=== PATIENT | male | born 1985 | race Caucasian/White ===

== ENCOUNTER → 2019-10-24 | Outpatient (CLI) | payer OTHER ==
--- NOTE | 2019-10-24 18:48 | REP ---
Right lower extremity venous ultrasound with reflux exam: History: Varicose veins right leg. 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 Right lower extremity venous findings: The deep veins are anechoic and compressible on two-dimensional scanning from the groin to the popliteal fossa in the right lower extremity. Color flow and spectral Doppler interrogation show no evidence of DVT. Doppler assessment: Multiple collateral veins are seen extending off the greater saphenous vein distally with reflux. Deep and superficial system reflux is visible on the right. 5.9 second duration reflux is seen in the common femoral vein. 6.4 second duration reflux is seen in the proximal greater saphenous vein which measures 5 mm in AP dimension. 5.1 second duration reflux is seen in the mid greater saphenous vein 5 mm in diameter. The greater saphenous vein at the knee measures 5 mm in diameter. The proximal femoral vein shows 4.2-second duration reflux. Mid femoral vein shows 6.1 second duration reflux and distal femoral vein shows 5.8 second duration reflux. There is 6 second reflux in the popliteal vein. The lesser saphenous vein does not show reflux and measures 2 mm. Impression: Deep and superficial system venous reflux. No evidence of deep vein thrombosis. Electronically Signed by Handy Story MD 10/24/2019 08:54 P
== END ==
LOC: M RAD 12:59
PROVIDERS: ATTEND Surgery
DX: I83.811 Varicose veins of right lower extremity with pain (principal)

== ENCOUNTER 2019-11-19 09:19 | Day surgery (SDC) | payer OTHER ==
[~2019-11-19] VITALS: Ht 175.3 cm; Wt 88.9 kg
[~2019-11-19 09:19] MED LIST: LIDOCAINE 1% MDV 20ML VIAL SQ PRN; LR 1,000 ML IV SCH; NS 1,000 ML IV SCH; PRIL20TA2 PO; XARE10TA PO
[2019-11-19] MEDS ORDERED: propofoL 200 MG/20 ML VIAL As Ordered ONE ×2 (10:08→12:47)
[2019-11-19] MEDS ORDERED: LIDOCAINE 2% INJ 100 MG/5 ML SDV (FOR ANES.) As Ordered ONE ×2 (10:08→12:22)
[2019-11-19] MEDS ORDERED: MIDAZOLAM INJ 2 MG/2 ML VIAL (J2250) As Ordered ONE (10:09)
[2019-11-19] MEDS ORDERED: fentaNYL 100 MCG/2 ML INJECTION (J3010) As Ordered ONE (10:09)
[2019-11-19] MEDS ORDERED: ZANT150T40 PO (10:14)
[2019-11-19] MEDS ORDERED: PRIL20TA2 PO (10:14)
[2019-11-19] MEDS ORDERED: XARE10TA (10:14)
[2019-11-19] MEDS ORDERED: KETAMINE HCL 200 MG/20 ML VIAL As Ordered ONE (11:53)
[2019-11-19] MEDS ORDERED: LIDOCAINE W/EPINEPHRINE 1% 20ML VIAL As Ordered ONE (11:58)
[2019-11-19] MEDS ORDERED: LIDOCAINE 1% MDV INJ 50 ML VIAL As Ordered ONE (12:35)
[2019-11-19] MEDS ORDERED: ONDANSETRON 4MG/2ML VIAL (J2405) As Ordered ONE (12:47)
--- NOTE | 2019-11-19 13:26 | POST-OPPD ---
Postoperative Procedure Note PREOPERATIVE DIAGNOSIS: [ 1. Venous hypertension with inflammation right leg 2. h/o recurrent superficial thrombophlebitis] POSTOPERATIVE DIAGNOSIS: [same] FINDINGS: [GSV slightly small in the upper thigh, large branches off saphenous vein just above knee] PROCEDURE: [Endovenous radiofrequency ablation right leg] SURGEON: [Ilene] BISQUE CLEANER: radiological technician ANESTHESIA: [local MAC] SPECIMENS: [none] ESTIMATED BLOOD LOSS: [<5mL] COMPLICATIONS: [none POSTOPERATIVE CONDITION: [awoken and brought to recovery MARK LUZ MD Nov 19, 2019 13:26
[2019-11-19 14:35] VITALS: BP 118/77
--- NOTE | 2019-11-25 10:26 | ROOPDOC ---
[facility] Report Of Operation Report of Operation DATE OF PROCEDURE: 11/19/19 PREOPERATIVE DIAGNOSIS: 1. Venous hypertension with inflammation right leg 2. h/o recurrent superficial thrombophlebitis POSTOPERATIVE DIAGNOSIS: same FINDINGS: GSV slightly small in the upper thigh, large branches off saphenous vein just above knee PROCEDURE: Endovenous radiofrequency ablation right leg SURGEON: Ilene RN CAMP: cosme light ANESTHESIA: local MAC SPECIMENS: none ESTIMATED BLOOD LOSS: <5mL COMPLICATIONS: none POSTOPERATIVE CONDITION: awoken and brought to recovery PROCEDURE IN DETAIL: Informed consent was obtained from the patient prior to taking him to the operating room. He was taken to the operating room and placed in the supine position on the operating room table. Monitored anesthesia care was begun. IV sedation given. Once ample sedation was achieved, the right leg was prepped and draped and the usual sterile fashion. Using ultrasound guidance, the right GSV was identified and marked and accessed just above the knee. The vein was accessed and the catheter was placed using standard Seldinger technique. Once the catheter was in place, the 7mm ablation catheter was placed. Ultrasound was used and the catheter was placed 2.5cm from the saphenofemoral junction. The catheter site was marked so as to not be moved for the procedure. Tumescence was then infiltrated around the vein and catheter at various locations along the vein. Once ample fluid was placed, the ablation was performed with a total of 9 cycles throughout the length of the vein. The catheter was removed and pressure was held. Compression dressing was then placed on the leg. MARK LUZ MD Nov 25, 2019 10:26
== END 2019-11-19 14:50 | disposition home or self-care (01) ==
LOC: M SDC 09:19
PROVIDERS: ATTEND Surgery
DX: I87.331 Chronic venous hypertension (idiopathic) with ulcer and inflammation of right lower extremity (principal); Z79.01 Long term (current) use of anticoagulants; K21.9 Gastro-esophageal reflux disease without esophagitis; Z79.899 Other long term (current) drug therapy; F17.220 Nicotine dependence, chewing tobacco, uncomplicated
CPT/HCPCS: 36475; 76940; 76998; J2250; J2405; J3010

== ENCOUNTER → 2019-11-28 | Outpatient (CLI) | payer OTHER ==
[~2019-11-28] MED LIST changes: -LIDOCAINE 1% MDV 20ML VIAL SQ PRN; -LR 1,000 ML IV SCH; -NS 1,000 ML IV SCH; +XARE10TA; +ZANT150T40 PO
--- NOTE | 2019-11-28 14:51 | REP ---
Clinical: Status post ablation therapy with right lower extremity pain . Technique: Virk scale and color Doppler evaluation right lower extremity using linear high frequency transducer. Findings: The greater saphenous vein (GSV) is appropriately occluded. Ultrasound examination of the right lower extremity deep venous structures from the common femoral vein to the popliteal vein demonstrates normal compressibility flow and wave patterns in response to respiration and augmentation. There is no evidence for deep venous thrombosis. 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 Impression: No evidence for deep venous thrombosis. GSV occlusion consistent with prior ablation therapy. Electronically Signed by Agustin Nur MD 11/28/2019 08:56 A
== END ==
LOC: M RAD 08:20
PROVIDERS: ATTEND Surgery
DX: I83.11 Varicose veins of right lower extremity with inflammation (principal); I80.01 Phlebitis and thrombophlebitis of superficial vessels of right lower extremity